=== PATIENT | male | born 1990 | race American Indian/Alaskan Native ===

== ENCOUNTER 2020-05-13 10:29 | Observation (INO) | payer SELFPAY ==
[2020-05-13] MEDS ORDERED: ACETAMINOPHEN 325 MG TAB PO ONE (10:47)
--- NOTE | 2020-05-13 10:47 | Emergency Department Report ---
Blank Doc - Documentation Documentation: 30-year-old male that presents with perianal abscess with tachycardia and low grade fever. This initial assessment/diagnostic orders/clinical plan/treatment(s) is/are subject to change based on patient's health status, clinical progression and re- assessment by fellow clinical providers in the ED. Further treatment and workup at subsequent clinical providers discretion. Patient/guardians urged not to elope from the ED as their condition may be serious if not clinically assessed and managed. Initial orders include: 1- Patient sent to [facility] for further evaluation and treatment 2- labs for possible CT scan 3- tylenol-recheck vitals
[2020-05-13 11:18] LABS: Basophils % (Auto) 0.4 % (0.0-1.8); Eosinophils % (Auto) 0.2 % (0.0-4.3); Hematocrit 45.9 % (35.5-45.6); Lymphocytes # (Auto) 1.6 K/mm3 (1.2-5.4); Lymphocytes % (Auto) 14.4 % (13.4-35.0); Mean Corpuscular HGB Conc 35 % (32-34); Mean Corpuscular Volume 89 fl (84-94); Monocytes # (Auto) 0.8 K/mm3 (0.0-0.8); Monocytes % (Auto) 7.3 % (0.0-7.3); Platelet Count 145 K/mm3 (140-440); Red Blood Count 5.16 M/mm3 (3.65-5.03); Red Cell Distribution Width 14.2 % (13.2-15.2)
[2020-05-13 11:36] LABS: BUN/Creatinine Ratio 11; Blood Urea Nitrogen 10 mg/dL (9-20); Calcium 9.5 mg/dL (8.4-10.2); Hemolysis Index 6
[2020-05-13] MEDS ORDERED: SODIUM CHLORIDE 0.9% 1000 ML 1,000 ML IV ONE (13:56)
[2020-05-13] MEDS ORDERED: MORPHINE 4 MG/1 ML INJ IV ONE (13:56)
[2020-05-13] MEDS ORDERED: ONDANSETRON 4 MG/2 ML INJ IV ONE (13:56)
[2020-05-13] MEDS ORDERED: CLINDAMYCIN 600 MG/50 mL 600 MG/50 ML BAG IV ONE (13:56)
--- NOTE | 2020-05-13 14:34 | Emergency Department Report ---
- General Chief complaint: Skin/Abscess/Foreign Body Stated complaint: ABSCESS Time Seen by Provider: 05/13/20 10:44 Source: patient Mode of arrival: Ambulatory Limitations: No Limitations - History of Present Illness Initial comments: Patient is a 30-year-old male who presents emergency room with complaints of a recurrent gluteal/anal abscess which he has had for over a year but states that it worsened in the last couple of days. He states that it has increased in size and become more painful. He states he has had incision and drainages performed in the past. He denies any nausea, vomiting, diarrhea, fever, drainage, hematochezia, hematemesis, melena. He denies any other past medical history. No allergies to medications. - Related Data Allergies Allergy/AdvReac Type Severity Reaction Status Date / Time No Known Allergies Allergy Unverified 05/13/20 10:40 Abscess Boil HPI - HPI Chief Complaint: Skin/Abscess/Foreign Body Stated Complaint: ABSCESS Time Seen by Provider: 05/13/20 10:44 Allergies/Adverse Reactions: Allergies Allergy/AdvReac Type Severity Reaction Status Date / Time No Known Allergies Allergy Unverified 05/13/20 10:40 ED Review of Systems ROS: Stated complaint: ABSCESS Other details as noted in HPI Comment: All other systems reviewed and negative ED Past Medical Hx - Past Medical History Previous Medical History?: No - Surgical History Past Surgical History?: No ED Physical Exam - General Limitations: No Limitations General appearance: alert, in no apparent distress - Head Head exam: Present: atraumatic, normocephalic - Eye Eye exam: Present: normal appearance - ENT ENT exam: Present: mucous membranes moist - Respiratory Respiratory exam: Absent: respiratory distress, accessory muscle use - Neurological Exam Neurological exam: Present: alert, oriented X3 - Psychiatric Psychiatric exam: Present: normal affect, normal mood - Skin Skin exam: Present: warm, dry, other (4 cm area of induration present inside the left buttock, small amount of fluctuance, no drainage, no opening, no necrosis, no skin denuding, no obvious anal involvement, no scrotal involvement, aligner typewriter: XIMENA crump) ED Course Vital Signs 05/13/20 05/13/20 05/13/20 10:41 12:15 14:38 Temperature 99.5 F Pulse Rate 131 H Respiratory 20 16 16 Rate Blood Pressure 128/90 O2 Sat by Pulse 96 Oximetry 10/08/20 17:18 Temperature 98.2 F Pulse Rate 72 Respiratory 18 Rate Blood Pressure 157/82 O2 Sat by Pulse 100 Oximetry - Consultations Consultation #1: 05/13/20 16:[address] Sneed, general surgery regarding pt history, presentation and results who advised to make patient n.p.o., give patient Zosyn 4.5 mg, admit to hospitalist service, will consult on patient 05/13/20 16:[address] Johns, hospitalist regarding patient history, presentation, results, will accept and resume care of patient, will admit to hospital service ED Medical Decision Making - Lab Data Result diagrams: 05/13/20 10:53 05/13/20 10:53 Lab Results 05/13/20 05/13/20 05/13/20 Range/Units 10:53 10:53 10:53 WBC 10.9 (4.5-11.0) K/mm3 RBC 5.16 H (3.65-5.03) M/mm3 Hgb 16.0 H (11.8-15.2) gm/dl Hct 45.9 H (35.5-45.6) % MCV 89 (84-94) fl MCH 31 (28-32) pg MCHC 35 H (32-34) % RDW 14.2 (13.2-15.2) % Plt Count 145 (140-440) K/mm3 Lymph % (Auto) 14.4 (13.4-35.0) % [place] % (Auto) 7.3 (0.0-7.3) % Eos % (Auto) 0.2 (0.0-4.3) % Baso % (Auto) 0.4 (0.0-1.8) % Lymph # (Auto) 1.6 (1.2-5.4) K/mm3 [place] # (Auto) 0.8 (0.0-0.8) K/mm3 Eos # (Auto) 0.0 (0.0-0.4) K/mm3 Baso # (Auto) 0.0 (0.0-0.1) K/mm3 Seg Neutrophils % 77.7 H (40.0-70.0) % Seg Neutrophils # 8.5 H (1.8-7.7) K/mm3 Sodium 140 (137-145) mmol/L Potassium 3.9 (3.6-5.0) mmol/L Chloride 99.3 (98-107) mmol/L Carbon Dioxide 27 (22-30) mmol/L Anion Gap 18 mmol/L BUN 10 (9-20) mg/dL Creatinine 0.9 (0.8-1.3) mg/dL Estimated GFR > 60 ml/min BUN/Creatinine Ratio 11 % Glucose 91 (75-100) mg/dL Lactic Acid 1.40 (0.7-2.0) mmol/L Calcium 9.5 (8.4-10.2) mg/dL - Radiology Data Radiology results: report reviewed CT abdomen pelvis w con INDICATION: gluteal abscess, r/o perirectal abscess. COMPARISON: None TECHNIQUE: Abdominal and pelvic CT exam performed. All CT scans at this location are performed using CT dose reduction for ALARA by means of automated exposure control. FINDINGS: CT ABDOMEN and PELVIS: Lung Bases: No significant abnormality. Liver: No significant abnormality. Biliary: No significant abnormality. Spleen: No significant abnormality. Pancreas: No significant abnormality. Adrenals: No significant abnormality. Kidneys: No significant abnormality. Lymphatics: No lymphadenopathy. Vasculature: No significant abnormality. Bowel/Peritoneum: No significant abnormality. Appendix is nonvisualized. However, no inflammatory changes in the right lower quadrant to suggest appendicitis. Pelvis: No significant abnormality. Osseous Structures: No aggressive osseous lesion. Additional Findings: There is a left septated perirectal abscess measuring approximately 5.3 x 2.9 x 5.5 cm. There is skin thickening in the perineum with surrounding stranding consistent with inflammation IMPRESSION: 1. There is a large left septated perirectal abscess. Signer Name: Dewayne Johnston MD Signed: 05/13/2020 4:21 PM Workstation Name: [id number] Transcribed By: CS Dictated By: Dewayne Johnston MD Electronically Authenticated By: Dewayne Johnston MD Signed Date/Time: 05/13/201620 DD/ 14 TD/TT: - Medical Decision Making Patient is a 30-year-old male who presents emergency room with complaints of a recurrent gluteal/anal abscess which he has had for over a year but states that it worsened in the last couple of days. He states that it has increased in size and become more painful. He states he has had incision and drainages performed in the past. He denies any nausea, vomiting, diarrhea, fever, drainage, hematochezia, hematemesis, melena. He denies any other past medical history. No allergies to medications. Initial vitals with tachycardia which improved to normal upon repeat. on exam: 4 cm area of induration present inside the left buttock, small amount of fluctuance, no drainage, no opening, no necrosis, no skin denuding, no obvious anal involvement, no scrotal involvement, aligner typewriter: XIMENA crump. Labs are stable. CT abdomen pelvis with IV contrast shows: 1. There is a large left septated perirectal abscess. Spoke with Dr. Sneed, general surgery regarding pt history, presentation and results who advised to make patient n.p.o., give patient Zosyn 4.5 mg, admit to hospitalist service, will consult on patient. Spoke to Dr. Johns, hospitalist regarding patient history, presentation, results, will accept and resume care of patient, will admit to hospital service. spoke with Dr. Nathan Haq, ER attending who agrees with plan. pt admitted to hospitalist service. - Differential Diagnosis Abscess, cellulitis, perirectal abscess, perianal abscess Critical care attestation.: If time is entered above; I have spent that time in minutes in the direct care of this critically ill patient, excluding procedure time. ED Disposition Clinical Impression: Perirectal abscess Disposition: [id number] OP ADMIT IP TO THIS HOSP Is pt being admited?: Yes Does the pt Need Aspirin: No Condition: Fair Time of Disposition: 16:55
--- NOTE | 2020-05-13 16:26 | Cat Scan Report ---
CT abdomen pelvis w con INDICATION: gluteal abscess, r/o perirectal abscess. COMPARISON: None TECHNIQUE: Abdominal and pelvic CT exam performed. All CT scans at this location are performed using CT dose reduction for ALARA by means of automated exposure control. FINDINGS: CT ABDOMEN and PELVIS: Lung Bases: No significant abnormality. Liver: No significant abnormality. Biliary: No significant abnormality. Spleen: No significant abnormality. Pancreas: No significant abnormality. Adrenals: No significant abnormality. Kidneys: No significant abnormality. Lymphatics: No lymphadenopathy. Vasculature: No significant abnormality. Bowel/Peritoneum: No significant abnormality. Appendix is nonvisualized. However, no inflammatory ch anges in the right lower quadrant to suggest appendicitis. Pelvis: No significant abnormality. Osseous Structures: No aggressive osseous lesion. Additional Findings: There is a left septated perirectal abscess measuring approximately 5.3 x 2.9 x 5.5 cm. There is skin thickening in the perineum with surrounding stranding consistent with inflammat ion IMPRESSION: 1. There is a large left septated perirectal abscess. Signer Name: Dewayne Johnston MD Signed: 05/13/2020 4:21 PM Workstation Name: [id number]
[2020-05-13] MEDS ORDERED: PIPERACIL/TAZOBACTA 4.5/NS 100 4.5 GM/100 ML VIAL IV ONE ×2 (16:52→17:29)
[2020-05-13] MEDS ORDERED: ACETAMINOPHEN 325 MG TAB PO PRN (17:01)
[2020-05-13] MEDS ORDERED: ONDANSETRON 4 MG/2 ML INJ IV PRN (17:01)
[2020-05-13] MEDS ORDERED: MORPHINE 2 MG/1 ML INJ IV PRN ×2 (17:05→20:54)
--- NOTE | 2020-05-13 17:11 | Consultation ---
History of Present Illness Consult date: 05/13/20 Reason for consult: other (anal/rectal pain) Chief complaint: anal /rectal pain - History of present illness History of present illness: 30 year old male with several day hx of worsening rectal/ anal pain, CT abd pelvis reveals perirectal abcess. Past History Past Surgical History: No surgical history Medications and Allergies Allergies Allergy/AdvReac Type Severity Reaction Status Date / Time No Known Allergies Allergy Unverified 05/13/20 10:40 Active Meds: Active Medications Acetaminophen (Tylenol) 650 mg PO Q4H PRN PRN Reason: Pain MILD(1-3)/Fever >100.5/URBINA Piperacillin Sod/Tazobactam Sod (Zosyn/Ns 4.5gm/100ml) 4.5 gm in 100 mls @ 200 mls/hr IV ONCE ONE; Protocol Stop: 05/13/20 17:21 Dextrose/Sodium Chloride (D5ns) 1,000 mls @ 100 mls/hr IV DIRECT IGOR Piperacillin Sod/Tazobactam Sod (Zosyn/Ns 3.375gm/50ml) 3.375 gm in 50 mls @ 100 mls/hr IV Q8HR IGOR; Protocol Morphine Sulfate (Morphine) 2 mg IV Q3H PRN PRN Reason: Pain, Moderate (4-6) Ondansetron HCl (Zofran) 4 mg IV Q8H PRN PRN Reason: Nausea And Vomiting Sodium Chloride (Sodium Chloride Flush Syringe 10 Ml) 10 ml IV BID IGOR Sodium Chloride (Sodium Chloride Flush Syringe 10 Ml) 10 ml IV PRN PRN PRN Reason: LINE FLUSH Review of Systems - Constitutional other (anal/rectal pain) Exam Vital Signs Temp Pulse Resp BP Pulse Ox 99.5 F 131 H 20 128/90 96 05/13/20 10:41 05/13/20 10:41 05/13/20 10:41 05/13/20 10:41 05/13/20 10:41 Results - Labs 05/13/20 10:53 05/13/20 10:53 Abnormal lab results 05/13/20 Range/Units 10:53 RBC 5.16 H (3.65-5.03) M/mm3 Hgb 16.0 H (11.8-15.2) gm/dl Hct 45.9 H (35.5-45.6) % MCHC 35 H (32-34) % Seg Neutrophils % 77.7 H (40.0-70.0) % Seg Neutrophils # 8.5 H (1.8-7.7) K/mm3 Diabetes panel 05/13/20 Range/Units 10:53 Sodium 140 (137-145) mmol/L Potassium 3.9 (3.6-5.0) mmol/L Chloride 99.3 (98-107) mmol/L Carbon Dioxide 27 (22-30) mmol/L BUN 10 (9-20) mg/dL Creatinine 0.9 (0.8-1.3) mg/dL Glucose 91 (75-100) mg/dL Calcium 9.5 (8.4-10.2) mg/dL Calcium panel 05/13/20 Range/Units 10:53 Calcium 9.5 (8.4-10.2) mg/dL Pituitary panel 05/13/20 Range/Units 10:53 Sodium 140 (137-145) mmol/L Potassium 3.9 (3.6-5.0) mmol/L Chloride 99.3 (98-107) mmol/L Carbon Dioxide 27 (22-30) mmol/L BUN 10 (9-20) mg/dL Creatinine 0.9 (0.8-1.3) mg/dL Glucose 91 (75-100) mg/dL Calcium 9.5 (8.4-10.2) mg/dL Adrenal panel 05/13/20 Range/Units 10:53 Sodium 140 (137-145) mmol/L Potassium 3.9 (3.6-5.0) mmol/L Chloride 99.3 (98-107) mmol/L Carbon Dioxide 27 (22-30) mmol/L BUN 10 (9-20) mg/dL Creatinine 0.9 (0.8-1.3) mg/dL Glucose 91 (75-100) mg/dL Calcium 9.5 (8.4-10.2) mg/dL Assessment and Plan Perirectal abcess documented on CT abd pelvis admit, NPO, iv fluids and antibiotics, pain control, OR for I and D of perirectal abcess.
--- NOTE | 2020-05-13 17:26 | History and Physical Report ---
History of Present Illness Date of examination: 05/13/20 History of present illness: Patient is a 30-year-old male who presents to the emergency room with complaints of a recurrent gluteal/anal abscess which he has had for over a year but states that it worsened in the last couple of days. He states that it has increased in size and become more painful. He states he has had incision and drainages performed in the past. He denies any nausea, vomiting, diarrhea, fever, drainage, hematochezia, hematemesis, melena. Surgical consult was obtained and patient is scheduled for I&D Past History Past Medical History: No medical history Past Surgical History: No surgical history (Except incision and drainage of rectal abscess in the past) Social history: smoking. denies: alcohol abuse, prescription drug abuse Family history: hypertension Medications and Allergies Allergies Allergy/AdvReac Type Severity Reaction Status Date / Time No Known Allergies Allergy Unverified 05/13/20 10:40 Active Meds: Active Medications Acetaminophen (Tylenol) 650 mg PO Q4H PRN PRN Reason: Pain MILD(1-3)/Fever >100.5/URBINA Dextrose/Sodium Chloride (D5ns) 1,000 mls @ 100 mls/hr IV DIRECT IGOR Piperacillin Sod/Tazobactam Sod (Zosyn/Ns 3.375gm/50ml) 3.375 gm in 50 mls @ 100 mls/hr IV Q8HR IGOR; Protocol Morphine Sulfate (Morphine) 2 mg IV Q3H PRN PRN Reason: Pain, Moderate (4-6) Ondansetron HCl (Zofran) 4 mg IV Q8H PRN PRN Reason: Nausea And Vomiting Sodium Chloride (Sodium Chloride Flush Syringe 10 Ml) 10 ml IV BID IGOR Sodium Chloride (Sodium Chloride Flush Syringe 10 Ml) 10 ml IV PRN PRN PRN Reason: LINE FLUSH Review of Systems Constitutional: no weight loss, no fever, no chills, no weakness Ears, nose, mouth and throat: no ear pain, no sore throat Cardiovascular: no chest pain, no palpitations, no syncope Respiratory: no cough, no shortness of breath Gastrointestinal: no abdominal pain, no nausea, no vomiting, no constipation, no melena Genitourinary Male: no dysuria Rectal: pain Musculoskeletal: no neck stiffness, no low back pain Integumentary: no rash Neurological: no head injury Psychiatric: no anxiety, no depression Exam - Constitutional Vitals: Temp Pulse Resp BP Pulse Ox 98.2 F 72 18 157/82 100 05/13/20 17:18 05/13/20 17:18 05/13/20 17:18 05/13/20 17:18 05/13/20 17:18 General appearance: Present: no acute distress - EENT Eyes: Present: PERRL, EOM intact ENT: hearing intact, clear oral mucosa - Neck Neck: Present: supple, normal ROM - Respiratory Respiratory effort: normal Respiratory: bilateral: CTA - Cardiovascular Rhythm: regular Heart Sounds: Present: S1 & S2 - Extremities Extremities: No edema - Abdominal General gastrointestinal: Present: soft, non-tender. Absent: hepatomegaly, splenomegaly Male genitourinary: Present: deferred - Rectal Rectal Exam: other (Induration and marked tenderness with mild fluctuation in the left perianal area) - Musculoskeletal Musculoskeletal: strength equal bilaterally - Psychiatric Psychiatric: appropriate mood/affect - Neurologic Neurologic: CNII-XII intact, no focal deficits Results - Labs CBC & Chem 7: 05/13/20 10:53 05/13/20 10:53 Labs: Abnormal lab results 05/13/20 Range/Units 10:53 RBC 5.16 H (3.65-5.03) M/mm3 Hgb 16.0 H (11.8-15.2) gm/dl Hct 45.9 H (35.5-45.6) % MCHC 35 H (32-34) % Seg Neutrophils % 77.7 H (40.0-70.0) % Seg Neutrophils # 8.5 H (1.8-7.7) K/mm3 Assessment and Plan - Patient Problems (1) Perirectal abscess Current Visit: Yes Status: Acute Plan to address problem: General surgery consulted General surgery note reviewed Patient scheduled for I&D of the perirectal abscess IV antibiotics with Zosyn Pain control with morphine IV NPO IV fluids (2) Tachycardia Current Visit: Yes Status: Acute Plan to address problem: Secondary to #1 Monitor vital signs
[2020-05-13] MEDS ORDERED: D5W/0.9% NACL 1,000 ML IV SCH (18:00)
[2020-05-13] MEDS ORDERED: HYDROmorphone 1 MG/1 ML INJ ONE (19:16)
[2020-05-13] MEDS ORDERED: LIDOCAINE MPF (2%) 20 MG/1 ML VIAL 5 ML ONE (19:16)
[2020-05-13] MEDS ORDERED: dexAMETHasone 20 MG/5 ML VIAL ONE (19:16)
[2020-05-13] MEDS ORDERED: propofoL 200 MG/20 ML VIAL IV ONE (19:16)
[2020-05-13] MEDS ORDERED: ONDANSETRON 4 MG/2 ML INJ ONE (19:16)
--- NOTE | 2020-05-13 19:52 | Anesthesia Consultation ---
Anesthesia Consult and Med Hx Date of service: 05/13/20 - Airway Anesthetic Teeth Evaluation: Good ROM Head & Neck: Adequate Mental/Hyoid Distance: Adequate Mallampati Class: Class I Intubation Access Assessment: Good - Pulmonary Exam CTA: Yes - Cardiac Exam Cardiac Exam: RRR - Pre-Operative Health Status ASA Pre-Surgery Classification: ASA2 Proposed Anesthetic Plan: General - Pulmonary Hx Smoking: Yes Hx Respiratory Symptoms: No Hx Sleep Apnea: No - Cardiovascular System Hx Hypertension: No Hx Coronary Artery Disease: No Hx Heart Attack/AMI: No - Central Nervous System Hx Neuromuscular Disorder: No Hx Seizures: No CVA: No Hx Psychiatric Problems: No - Endocrine Hx Renal Disease: No Hx Liver Disease: Yes (Hepatits A) Hx Insulin Dependent Diabetes: No Hx Non-Insulin Dependent Diabetes: No Hx Thyroid Disease: No - Hematic Hx Anemia: No Hx Sickle Cell Disease: No - Other Systems Hx Alcohol Use: Yes (Occasionally) Hx Substance Use: Yes (Marijuana- last used 7 days ago) Hx Obesity: No - Additional Comments Anesthesia Medical History Comments: Patient denied previous anesthesia complication.
--- NOTE | 2020-05-13 19:54 | Anesthesia Day of Surgery ---
Anesthesia Day of Surgery - Day of Surgery Patient Examined: Yes Patient H&P Reviewed: Yes Patient is NPO: No (Water 3hours ago) Beta Blockers: No Cardiac Clearance: No Pulmonary Clearance: No
--- NOTE | 2020-05-13 20:01 | Event Note ---
Date: 05/13/20 It turns out, after a careful hx the patient revealed that he had been seen in past by colon and rectal surgeon, but did not follow up. He has had perirectal abcesses before which suggests a fistula may be present, does not waste/materials exchange specialist now, simply needs drainage of abcess.
[2020-05-13] MEDS ORDERED: SUCCINYLCHOLINE CHLORIDE 200 MG/10 ML INJ MDV ONE (20:07)
[2020-05-13] MEDS ORDERED: LACTATED RINGERS 1,000 ML ONE (20:11)
[2020-05-13] MEDS ORDERED: ceFAZolin 1 GM VIAL ONE ×2 (20:38)
[2020-05-13] MEDS ORDERED: KETOROLAC 30 MG/1 ML INJ ONE (20:47)
--- NOTE | 2020-05-13 20:48 | Post Operative Note ---
Pre-op diagnosis: perirectal abcess Post-op diagnosis: same Findings: left sided stephany-rectal abcess Procedure: Incise and Drain stephany-rectal abcess Anesthesia: GETA Surgeon: LAURIE TREVIZO Estimated blood loss: minimal Pathology: list (bacterial cultures) Specimen disposition: to lab Condition: stable Disposition: floor
[2020-05-13] MEDS ORDERED: oxyCODONE /ACETAMINOPHEN 5-325MG TAB PO PRN (20:52)
--- NOTE | 2020-05-13 21:04 | Operative Report ---
PREOPERATIVE DIAGNOSIS: Perirectal abscess. POSTOPERATIVE DIAGNOSIS: Perirectal abscess. OPERATIVE FINDINGS: Left-sided perirectal abscess situated with the patient in supine position, at about the 3 o'clock position. PROCEDURE: Incision and drainage of a perirectal abscess. ANESTHESIA: General. BLOOD LOSS: Minimal. SPECIMEN: I sent aerobic and anaerobic bacterial cultures. CONDITION: Stable. DESCRIPTION OF PROCEDURE: After informed consent, the patient was brought to the operating room, induced under general anesthesia. He received IV antibiotics and had compression stockings in place. He was placed up in stirrups. He was sterilely prepped and draped. I did a rectal exam and could palpate the perirectal abscess, which is situated at the 3 o'clock position. There were scars from previous drainage procedures. I made an incision with a #15 scalpel and passed a Sherry into the abscess. There was a fair amount of pus under pressure. It was decompressed nicely and then I washed it out with dilute hydrogen peroxide. There was no extrusion of the hydrogen peroxide through the anus to suggest an active fistula. Then, I washed it out with normal saline and packed it with 0.5 inch iodine-impregnated gauze and a sterile dressing was applied. The patient tolerated the procedure well. There were no intraoperative complications. JOB# [id number] SHENG/DEVEN
[2020-05-13] MEDS ORDERED: PIPERACILLIN/TAZOBACTAM 3.375 3.375 GM/50 ML BAG IV SCH (22:00)
--- NOTE | 2020-05-13 23:40 | Post Anesthesia Evaluation ---
- Post Anesthesia Evaluation Patient Participated: Yes Airway Patent: Yes Stable Respiratory Function: Yes Nausea/Vomiting: No Temp > 96.8F: Yes Pain Manageable: Yes Adequeate Hydration: Yes Anesthesia Complications: No Block Receding Appropriately: Not Applicable Patient on Ventilator: No
--- NOTE | 2020-05-14 07:53 | Progress Note ---
Assessment and Plan POD 1 s/p I and D of perirectal abcess, VSS AF, packing will need to be removed this am on rounds, then patient can be discharged home on oral cipro and flagyll x 7 days, he needs to take sitz baths twice a day with epsom salts, he can fol low up in my office in one week, call [phone] for appt next week. Subjective Date of service: 05/14/20 Patient Reports: Positive: feels better Objective Vital Signs - 12hr 05/13/20 05/13/20 05/13/20 21:00 21:05 21:10 Temperature 97.6 F Pulse Rate 82 80 69 Respiratory 14 14 15 Rate Blood Pressure 134/80 139/77 126/74 Blood Pressure [Right] O2 Sat by Pulse 100 100 100 Oximetry 05/13/20 05/13/20 05/13/20 21:15 21:30 21:45 Temperature 97.9 F Pulse Rate 69 85 71 Respiratory 12 12 13 Rate Blood Pressure 127/73 115/69 124/72 Blood Pressure [Right] O2 Sat by Pulse 97 98 96 Oximetry 05/13/20 05/14/20 05/14/20 22:00 04:43 05:35 Temperature 98 F 97.3 F L Pulse Rate 75 54 L Respiratory 17 16 17 Rate Blood Pressure 116/69 Blood Pressure 116/69 126/71 [Right] O2 Sat by Pulse 95 95 Oximetry 05/14/20 06:05 Temperature Pulse Rate Respiratory 17 Rate Blood Pressure Blood Pressure [Right] O2 Sat by Pulse Oximetry - Labs 05/13/20 10:53 05/13/20 10:53 Diabetes panel 05/13/20 Range/Units 10:53 Sodium 140 (137-145) mmol/L Potassium 3.9 (3.6-5.0) mmol/L Chloride 99.3 (98-107) mmol/L Carbon Dioxide 27 (22-30) mmol/L BUN 10 (9-20) mg/dL Creatinine 0.9 (0.8-1.3) mg/dL Glucose 91 (75-100) mg/dL Calcium 9.5 (8.4-10.2) mg/dL Calcium panel 05/13/20 Range/Units 10:53 Calcium 9.5 (8.4-10.2) mg/dL Pituitary panel 05/13/20 Range/Units 10:53 Sodium 140 (137-145) mmol/L Potassium 3.9 (3.6-5.0) mmol/L Chloride 99.3 (98-107) mmol/L Carbon Dioxide 27 (22-30) mmol/L BUN 10 (9-20) mg/dL Creatinine 0.9 (0.8-1.3) mg/dL Glucose 91 (75-100) mg/dL Calcium 9.5 (8.4-10.2) mg/dL Adrenal panel 05/13/20 Range/Units 10:53 Sodium 140 (137-145) mmol/L Potassium 3.9 (3.6-5.0) mmol/L Chloride 99.3 (98-107) mmol/L Carbon Dioxide 27 (22-30) mmol/L BUN 10 (9-20) mg/dL Creatinine 0.9 (0.8-1.3) mg/dL Glucose 91 (75-100) mg/dL Calcium 9.5 (8.4-10.2) mg/dL
--- NOTE | 2020-05-14 09:53 | Event Note ---
Date: 05/14/20 packing removed, OK for discharge.
--- NOTE | 2020-05-14 11:24 | Discharge Summary ---
Providers - Providers Date of Admission: 05/13/20 16:55 Date of discharge: 05/14/20 Attending physician: JENNIFER MENDEZ 05/13/20 16:51 Consult to Physician [CONS] Stat Comment: Consulting Provider: LAURIE TREVIZO Physician Instructions: Reason For Exam: perirectal abscess Primary care physician: [employer] Hospitalization Condition: Good Hospital course: Patient 30-year-old male presents with recurrent rectal abscess. Patient had purulent drainage painful abscess. Required surgical intervention with I&D. Area was drawn wound was drained packed. It was unpacked and evaluated by surgery will start to be stable for discharge. Will discharge home with wound treatment. Also patient will get 7 days p.o. antibiotics. Patient had no fever no acute pain. We will follow-up with surgeon 1 week. Disposition: DC-01 TO HOME OR SELFCARE - Discharge Diagnoses (1) Perirectal abscess Status: Acute Comment: Status post incision and drainage. Follow-up with surgery 1 week. Continue p.o. antibiotics. No evidence of sepsis. Core Measure Documentation - Palliative Care Palliative Care/ Comfort Measures: Not Applicable - Core Measures Any of the following diagnoses?: none Exam - Constitutional Vitals: Temp Pulse Resp BP Pulse Ox 97.9 F 53 L 19 146/82 100 05/14/20 08:43 05/14/20 08:29 05/14/20 08:29 05/14/20 08:29 05/14/20 08:29 General appearance: Present: no acute distress, well-nourished - EENT Eyes: Present: PERRL ENT: hearing intact, clear oral mucosa - Neck Neck: Present: supple, normal ROM - Respiratory Respiratory effort: normal Respiratory: bilateral: CTA - Cardiovascular Heart Sounds: Present: S1 & S2. Absent: rub, click - Extremities Extremities: pulses symmetrical, No edema Peripheral Pulses: within normal limits - Abdominal General gastrointestinal: Present: soft, non-tender, non-distended, normal bowel sounds Male genitourinary: Present: normal - Rectal Rectal Exam: other (Rectal area bandage observe with surgeon. Stable no evidence of infection now. No overt bleeding.) - Integumentary Integumentary: Present: clear, warm, dry - Musculoskeletal Musculoskeletal: gait normal, strength equal bilaterally - Psychiatric Psychiatric: appropriate mood/affect, intact judgment & insight - Neurologic Neurologic: CNII-XII intact, moves all extremities Plan Activity: avoid flexion Weight Bearing Status: Full Weight Bearing Diet: regular Wound: remove dressing Special Instructions: home health RN Follow up with: PRIMARY CARE, [Primary Care Provider] - 3-5 Days Prescriptions: oxyCODONE /ACETAMINOPHEN [Percocet 5/325 mg] 1 tab PO Q4H PRN #30 tablet PRN Reason: Pain, Moderate (4-6)
[2020-05-14] MEDS ORDERED: PIPERACILLIN/TAZOBACTAM 3.375 3.375 GM/50 ML BAG IV SCH (12:00)
[2020-05-14 12:09] VITALS: BP 138/80
== END 2020-05-14 13:50 | disposition home or self-care (01) ==
LOC: ED 10:29 → 3B-SURG 16:55
PROVIDERS: ADMIT Internal Medicine; ATTEND Internal Medicine
DX: K61.1 Rectal abscess (principal); R00.0 Tachycardia, unspecified
CPT/HCPCS: 36415; 46040; 74177; 80048; 82140; 85025; 87076; 87116; 87186; 96365; 96366; 96367; 96375; 96376; 99285; G0378; J0330; J0690; J1100; J1170; J1885; J2270; J2405; J2543; J2704; J7030; J7042; J7120; Q9967